=== PATIENT | female | born 1955 | race Caucasian/White ===

== ENCOUNTER → 2016-12-12 | Outpatient (CLI) | payer BC ==
[~2016-12-12] MED LIST: CALCIUM + D 6001 TA1 PO; LEXAPRO PO; MULTI-DAY VITAM1 TAB PO; SYNTHROID125 PO
--- NOTE | ~2016-12-12 | CR170 ---
[facility] A Service of [facility] RADIOLOGY TEXT RESULTS PATIENT: JUNIOR AGUIRRE LOCATION: [facility] : 53 UNIT #: [id number] AGE: [address]: Kendra Zuniga MD SEX: F ORDER DR: [id number] [address] [address] [id number] O MR#: [id number] Acc #: [id number] NAME: JUNIOR AGUIRRE : 1955 SEX: F STUDY DATE/TIME: 12/12/2016 11:26 UNIT: [facility] ROOM: STUDY DESCRIPTION: CR Knee 2 Views Rt Attending Physician: Kendra Zuniga M.D. Referring Physician: Kendra Zuniga M.D. Ordering Physician: Kendra Zuniga M.D. Primary Care Physician: Tabby Hamilton M.D. MEDICAL IMAGING REPORT This report is preliminary unless electronic signature is present. EXAM Right knee, 12/12/2016. HISTORY 61-year-old female with right knee pain for 1 month. Order states stress fracture, right tibia. COMPARISON None. FINDINGS Two views of the right knee demonstrate no evidence of a displaced fracture or dislocation. No joint effusion. Joint spaces are adequately maintained. Soft tissues are unremarkable. IMPRESSION No evidence of a displaced fracture or dislocation. If there is continued concern for a stress fracture or reevaluation of a known stress fracture, then MRI of the right knee may be considered. Dictated by... Alex Duque M.D. THIS IS AN ELECTRONICALLY VERIFIED REPORT Alex Duque M.D. at 12/15/2016 2:07 PM YAEL/wild TD: 12/13/2016 11:52 JOB #: [id number] MEDICAL IMAGING REPORT [facility] A Service of [facility] RADIOLOGY TEXT RESULTS PATIENT: JUNIOR AGUIRRE LOCATION: [facility] : 53 UNIT #: [id number] AGE: [address]: Kendra Zuniga MD SEX: F ORDER DR: Page 1 of 1
== END | disposition home or self-care (01) ==
LOC: SRAD 10:54
DX: M84.361A Stress fracture, right tibia, initial encounter for fracture (principal)
CPT/HCPCS: 73560